=== PATIENT | female | born 1940 | race Caucasian/White ===

== ENCOUNTER 2019-07-04 12:23 | Emergency (ER) | payer MEDICARE ==
[~2019-07-04] VITALS: Ht 154.9 cm; Wt 72.6 kg
[2019-07-04] MEDS ORDERED: ALPRAZolam 0.25 MG (XANAX) TAB PO ONE (12:45)
[2019-07-04] MEDS ORDERED: LIDOCAINE/EPI 1%-1:100,000 (XYLOCAINE) 20ML INJ ONE (12:45)
[2019-07-04] MEDS ORDERED: ACETAMINOPHEN 325 MG TABLET PO ONE (12:45)
[2019-07-04] MEDS ORDERED: TETANUS,DIPTH,PERTUSS P/F (BOOSTRIX) 0.5 ML VIAL IM ONE (12:45)
[2019-07-04] MEDS ORDERED: LIDOCAINE/EPI 2% 1:100,00 (XYLOCAINE) 20 ML VIAL ONE (12:59)
[2019-07-04] MEDS ORDERED: LIDOCAINE/EPI 2% 1:100,00 (XYLOCAINE) 20 ML VIAL INJ ONE (13:15)
--- NOTE | 2019-07-04 13:28 | ED Lower Extremity ---
General Chief Complaint: Laceration Stated Complaint: RIGHT LEG PAIN Nursing Triage Note: Patient c/o laceration to right lower leg. States she was going to give her the remoted when a T.V. tray fell over on her right leg cutting it open. She stated it bled quite a bit at first but has slowed down. Nursing Sepsis Screen: No Definite Risk History of Present Illness Date Seen by Provider: Jul 04, 2019 Time Seen by Provider: 12:45 Initial Comments The patient is an 78-year-old female who presents with concern for a minimal flaplike laceration to her lower lateral right lee with onset just prior to arrival when the sharp edge of a wooden TV tray cut her leg. No other injury during the episode. No therapy prior to arrival. No other concerns today. Allergies and Home Medications Allergies Coded Allergies: No Known Drug Allergies (Unverified , 07/04/19) Patient Home Medication List Home Medication List Reviewed: Yes Review of Systems Constitutional: see HPI All Other Systems Reviewed Negative Unless Noted: Yes Past Lmfxviw-Zouwfy-Shqoju Hx Past Med/Social Hx: Reviewed Nursing Past Med/Soc Hx Patient Social History Alcohol Use: Denies Use Recreational Drug Use: No Smoking Status: Never a Smoker 2nd Hand Smoke Exposure: No Recent Foreign Travel: No Contact w/Someone Who Travel: No Recent Infectious Disease Expo: No Recent Hopitalizations: No Physical Abuse: No Sexual Abuse: No Mistreated: No Fear: No Immunizations Up To Date Tetanus Booster (TDap): Unknown Seasonal Allergies Seasonal Allergies: Yes Past Medical History Surgeries: Yes (Pacemaker/Defib, small bowel resection) Appendectomy, Bowel Surgery, Cardiac, Coronary Stent, Thyroidectomy Respiratory: Yes Asthma Cardiac: Yes Atrial Fibrillation, Heart Attack, High Cholesterol, Hypertension Neurological: No Genitourinary: No Gastrointestinal: Yes (Ulcerative Colitis) Colitis Arthritis, Chronic Back Pain Endocrine: Yes Hypothyroidsim HEENT: No Cancer: No Psychosocial: Yes Anxiety, Depression Integumentary: No Family Medical History Reviewed Nursing Family Hx Physical Exam Vital Signs Vital Signs - First Documented 07/04/19 12:30 Temp 36.2 Pulse 99 Resp 16 B/P (MAP) 110/83 (92) Pulse Ox 99 O2 Delivery Room Air Capillary Refill : Less Than 3 Seconds Height, Weight, BMI Height: '" Weight: lbs. oz. kg; 30.00 BMI Method: General Appearance: no apparent distress This is an 78-year-old female appearing nontoxic and in no acute distress. Head is normocephalic and atraumatic. Neck is supple and nontender. Oropharynx is moist. Lungs are clear to auscultation in all stations. There is a normal S1 and S2 without rubs or gallops and capillary refill is appropriate, less than 2 seconds globally. Abdomen is soft, nontender and nondistended. Skin is warm and dry without cyanosis, clubbing or edema. Psychiatrically, the patient demonstrates appropriate mood and affect and is alert. No skeletal standpoint, evaluation of the right lower extremity is remarkable for an approximately 10 cm flaplike superficial laceration which is hemostatic and located on the lateral right lower lee. No pain with ranging of any joint of the right lower extremities. The right lower extremity is neurovascularly intact distally. Procedures/Interventions Wound Location: Lower Extremities Other Wound Location Right lower leg Wound Length (cm): 10 Wound's Depth, Shape: superficial Wound Explored: clean Irrigated w/ Saline (ccs): 500 Anesthesia: Lidocaine w/ Epi Volume Anesthetic (ccs): 6 Suture: Ethlion Suture Size: 3-0 Number of Sutures: 6 Layer Closure?: 1 Progress/Results/Core Measures Results/Orders My Orders Orders - OLIVE YEN MD Alprazolam Tablet (Xanax Tablet) (07/04/19 12:45) Acetaminophen Tablet/Caplet (Tylenol T (07/04/19 12:45) Dipht,Pertuss(Acell),Tet Adult (Boostrix (07/04/19 12:45) Lidocaine/Epi 2% 1:100,000 (Xylocaine/Ep (07/04/19 12:59) Lidocaine/Epi 2% 1:100,000 (Xylocaine/Ep (07/04/19 13:15) Medications Given in ED Current Medications Medications Dose Ordered Sig/Christina Route Start Time Stop Time Status Last Admin Dose Admin Acetaminophen 975 mg ONCE ONCE PO 07/04/19 12:45 07/04/19 12:46 DC 07/04/19 12:56 975 MG Alprazolam 0.25 mg ONCE ONCE PO 07/04/19 12:45 07/04/19 12:46 DC 07/04/19 12:56 0.25 MG Lidocaine/ Epinephrine 20 ml ONCE ONCE INJ 07/04/19 13:15 07/04/19 13:16 DC 07/04/19 13:06 20 ML Vital Signs/I&O 07/04/19 12:30 Temp 36.2 Pulse 99 Resp 16 B/P (MAP) 110/83 (92) Pulse Ox 99 O2 Delivery Room Air Blood Pressure Mean: 92 Progress Progress Note : Progress Note Laceration repaired without complication as per procedure note. Patient has very delicate skin and some sutures did unfortunately tear. Because of this, the wound was only loosely approximated. Patient will be referred to wound care for follow-up given this and given the fact that she has had difficulty with wound healing in the past. She is to follow-up in the next 1-2 days and return immediately to the emergency department if symptoms worsen or if other new symptoms of concern develop. Sutures out in 7-10 days. The patient and her family member understand and agree. Sutures are answered. Departure Impression Primary Impression: Laceration of right lower leg Disposition: HOME, SELF-CARE Condition: Improved Departure-Patient Inst. Referrals: REMA GARCIA APRN (PCP/Family) Primary Care Physician Patient Instructions: Laceration Repair With Stitches (DC) Add. Discharge Instructions: Follow-up with wound care in the next 1-2 days. Call for appointment. Return for suture removal in 7-10 days. Return in the meantime if signs of infection including increased redness, warmth, swelling or drainage develop. Scripts Acetaminophen (Tylenol) 325 Mg Capsule 650 MG PO Q6H for 7 Days, #50 CAP Prov: OLIVE YEN MD 07/04/19 OLIVE YEN MD Jul 04, 2019 13:28
[2019-07-04] MEDS ORDERED: ACET325C5 PO (13:29)
[2019-07-04 13:55] VITALS: BP 110/83
== END 2019-07-04 13:55 | disposition home or self-care (01) ==
LOC: EDUNIT# 12:23 → ER FS 12:25
DX: S81.811A Laceration without foreign body, right lower leg, initial encounter (principal); I10 Essential (primary) hypertension; J45.909 Unspecified asthma, uncomplicated; I25.2 Old myocardial infarction; I25.10 Atherosclerotic heart disease of native coronary artery without angina pectoris; E78.00 Pure hypercholesterolemia, unspecified; F41.9 Anxiety disorder, unspecified; F32.9 Major depressive disorder, single episode, unspecified; I48.91 Unspecified atrial fibrillation; E03.9 Hypothyroidism, unspecified; Z95.810 Presence of automatic (implantable) cardiac defibrillator; Z90.49 Acquired absence of other specified parts of digestive tract; Z23 Encounter for immunization; Z95.5 Presence of coronary angioplasty implant and graft; W20.8XXA Other cause of strike by thrown, projected or falling object, initial encounter
CPT/HCPCS: 12002; 90471; 90715

== ENCOUNTER → 2019-07-08 | Outpatient (CLI) | payer MEDICARE ==
[~2019-07-08] MED LIST: ACET325C5 PO
[2019-07-08 16:07] LABS: BASOPHILS # (AUTO) 0.1 10^3/uL (0.0-0.1); BASOPHILS % (AUTO) 1 % (0-10); EOSINOPHILS # (AUTO) 0.2 10^3/uL (0.0-0.3); EOSINOPHILS % (AUTO) 3 % (0-10); HEMATOCRIT 33 % (35-52); HEMOGLOBIN 10.5 G/DL (11.5-16.0); LYMPHOCYTES # (AUTO) 1.6 X 10^3 (1.0-4.0); LYMPHOCYTES % (AUTO) 27 % (12-44); MEAN CORPUSCULAR HEMOGLOBIN 29 PG (25-34); MEAN CORPUSCULAR HGB CONC 32 G/DL (32-36); MEAN CORPUSCULAR VOLUME 91 FL (80-99); MEAN PLATELET VOLUME 10.4 FL (7.4-10.4); MONOCYTES # (AUTO) 0.6 X 10^3 (0.0-1.0); MONOCYTES % (AUTO) 10 % (0-12); NEUTROPHILS # (AUTO) 3.5 X 10^3 (1.8-7.8); NEUTROPHILS % (AUTO) 59 % (42-75); PLATELET COUNT 212 10^3/uL (130-400); RED CELL DISTRIBUTION WIDTH 13.7 % (10.0-14.5); WHITE BLOOD COUNT 5.8 10^3/uL (4.3-11.0)
[2019-07-08 16:33] LABS: ALBUMIN 4.1 GM/DL (3.2-4.5); BILIRUBIN,TOTAL 0.2 MG/DL (0.1-1.0); CALCIUM 9.1 MG/DL (8.5-10.1); CREATININE SERUM 1.27 MG/DL (0.60-1.30); POTASSIUM 4.8 MMOL/L (3.6-5.0)
== END ==
LOC: EDUNIT# 01-01 08:54 → WOUNDCARE 13:54
PROVIDERS: ATTEND Surgery
DX: S81.801A Unspecified open wound, right lower leg, initial encounter (principal); L97.212 Non-pressure chronic ulcer of right calf with fat layer exposed; I87.331 Chronic venous hypertension (idiopathic) with ulcer and inflammation of right lower extremity
CPT/HCPCS: 36415; 80053; 85025; 99212

== ENCOUNTER → 2019-07-13 | Outpatient (CLI) | payer MEDICARE | LOC: WOUNDCARE 14:10 | PROVIDERS: ATTEND Surgery | DX: I87.331 Chronic venous hypertension (idiopathic) with ulcer and inflammation of right lower extremity (principal); I96 Gangrene, not elsewhere classified; L97.212 Non-pressure chronic ulcer of right calf with fat layer exposed | CPT/HCPCS: 99212 ==

== ENCOUNTER → 2019-07-20 | Outpatient (CLI) | payer MEDICARE | LOC: WOUNDCARE 14:16 | PROVIDERS: ATTEND Surgery | DX: I96 Gangrene, not elsewhere classified (principal); I87.331 Chronic venous hypertension (idiopathic) with ulcer and inflammation of right lower extremity; L97.212 Non-pressure chronic ulcer of right calf with fat layer exposed | CPT/HCPCS: 99212 ==

== ENCOUNTER → 2019-07-27 | Outpatient (CLI) | payer MEDICARE | LOC: WOUNDCARE 13:10 | PROVIDERS: ATTEND Surgery | DX: L97.212 Non-pressure chronic ulcer of right calf with fat layer exposed (principal); I87.331 Chronic venous hypertension (idiopathic) with ulcer and inflammation of right lower extremity; I70.232 Atherosclerosis of native arteries of right leg with ulceration of calf; I96 Gangrene, not elsewhere classified | CPT/HCPCS: 99212 ==

== ENCOUNTER → 2019-08-03 | Outpatient (CLI) | payer MEDICARE | LOC: WOUNDCARE 13:04 | PROVIDERS: ATTEND Surgery | DX: L97.212 Non-pressure chronic ulcer of right calf with fat layer exposed (principal); I87.331 Chronic venous hypertension (idiopathic) with ulcer and inflammation of right lower extremity; I70.232 Atherosclerosis of native arteries of right leg with ulceration of calf; I96 Gangrene, not elsewhere classified | CPT/HCPCS: 11042 ==

== ENCOUNTER 2019-08-07 19:32 | Emergency (ER) | payer MEDICARE ==
[~2019-08-07] VITALS: Ht 154 cm; Wt 73.0 kg
[2019-08-07 20:27] LABS: CLARITY,URINE CLEAR; COLOR,URINE YELLOW; GLUCOSE, URINE (UA) NEGATIVE (NEGATIVE); KETONES,URINE NEGATIVE (NEGATIVE); PH,URINE 5.5 (5-9); PROTEIN,URINE NEGATIVE (NEGATIVE)
[2019-08-07 20:28] LABS: BACTERIA,URINE TRACE /HPF; BILIRUBIN,URINE NEGATIVE (NEGATIVE); LEUKOCYTE ESTERASE ,URINE TRACE (NEGATIVE); NITRITE,URINE NEGATIVE (NEGATIVE); SQUAMOUS EPITHELIAL CELL,UR RARE /HPF; WBC,URINE 0-2 /HPF
--- NOTE | 2019-08-07 21:12 | ED Back Pain ---
General Chief Complaint: Back Problems Stated Complaint: BACK PAIN Nursing Triage Note: pt fell 10 days ago, went to dr today and had xrays taken, shadow seen at [facility] so they recommended pt have ct scan Nursing Sepsis Screen: No Definite Risk Source of Information: Patient, Family History of Present Illness Date Seen by Provider: Aug 07, 2019 Time Seen by Provider: 20:44 Initial Comments 79-year-old female presenting with complaints of back pain at approximately the level of her bra. She fell approximately 10 days ago at home. She was seen today in clinic and had x-rays of her thoracic and lumbar spine done. On the lumbar spine they saw degenerative changes but no fractures but on her thoracic spine there was concern for compression fracture of T7. Recommendations were for a CT scan to evaluate if this was more acute or not. When the clinic had called her this evening the had advised her if she was having continued pain to go to the emergency department. Her family brought her to be evaluated as a were unsure if he compression fracture was causing any bone fragments to press against her spinal cord. She denies any loss of bowel or bladder control. She also denies any pain radiating pain down into her legs. She does have a wound that is slow to heal on her right leg that she is following with wound care out of [facility], [place], operated by [facility]. She was advised to take the tramadol at 2 pills or 100 mg at a time to help with her pain when she was seen in the clinic today. She plans to start this tomorrow. Allergies and Home Medications Allergies Coded Allergies: No Known Drug Allergies (Unverified , 07/04/19) Home Medications Acetaminophen 325 Mg Capsule, 650 MG PO Q6H Prescribed by: OLIVE YEN on 07/04/19 1329 Patient Home Medication List Home Medication List Reviewed: Yes Review of Systems Constitutional: No chills, No fever, No malaise EENTM: no symptoms reported Respiratory: other (pain with deep breaths) Cardiovascular: chest pain (pain with deep breaths) Gastrointestinal: no symptoms reported Genitourinary: no symptoms reported Musculoskeletal: see HPI, other (chronic slow to heal wound in her left leg that she is following with wound care in [address]. posterior chest wall pain with deep breaths) Skin: see HPI (slow healing wound on LLE) Psychiatric/Neurological: Denies Numbness, Denies Paresthesia, Denies Weakness Past Ujdxkzj-Mrwofu-Swmbnf Hx Past Med/Social Hx: Reviewed Nursing Past Med/Soc Hx Patient Social History Alcohol Use: Denies Use Recreational Drug Use: No 2nd Hand Smoke Exposure: No Recent Foreign Travel: No Contact w/Someone Who Travel: No Recent Infectious Disease Expo: No Recent Hopitalizations: No Physical Abuse: No Sexual Abuse: No Mistreated: No Fear: No Immunizations Up To Date Tetanus Booster (TDap): Unknown Seasonal Allergies Seasonal Allergies: Yes Past Medical History Surgeries: Yes (Pacemaker/Defib, small bowel resection) Appendectomy, Bowel Surgery, Cardiac, Coronary Stent, Thyroidectomy Respiratory: Yes Asthma Cardiac: Yes Atrial Fibrillation, Heart Attack, High Cholesterol, Hypertension Neurological: No Genitourinary: No Gastrointestinal: Yes (Ulcerative Colitis) Colitis Arthritis, Chronic Back Pain Endocrine: Yes Hypothyroidsim HEENT: No Cancer: No Psychosocial: Yes Anxiety, Depression Integumentary: No Physical Exam Vital Signs Vital Signs - First Documented 08/07/19 20:17 Temp 36.5 Pulse 61 Resp 14 B/P (MAP) 152/83 (106) Pulse Ox 100 O2 Delivery Room Air Capillary Refill : Less Than 3 Seconds Height, Weight, BMI Height: '" Weight: lbs. oz. kg; 30.00 BMI Method: General Appearance: No Apparent Distress, WD/WN HEENT: PERRL/EOMI, Pharynx Normal Neck: Full Range of Motion, Normal Inspection, Non Tender, Supple Cardiovascular: Regular Rate, Rhythm, Normal Peripheral Pulses Respiratory: Lungs Clear, Normal Breath Sounds, No Accessory Muscle Use, No Respiratory Distress, Other (tender to palpation over t7 vertebra and to the left of this area has muscle spasms and tenderness to palpation. no crepitus noted and no stepoffs) Back: Muscle Spasm, Vertebral Tenderness (T7 level and muscle spasms to the left of this area) Neurologic/Psychiatric: Alert, Oriented x3, No Motor/Sensory Deficits Skin: Normal Color, Warm/Dry Procedures/Interventions Suture Size: 3-0 Progress/Results/Core Measures Results/Orders Lab Results Laboratory Tests Test 08/07/19 20:20 Range/Units Urine Color YELLOW Urine Clarity CLEAR Urine pH 5.5 5-9 Urine Specific [place] 1.015 L 1.016-1.022 Urine Protein NEGATIVE NEGATIVE Urine Glucose (UA) NEGATIVE NEGATIVE Urine Ketones NEGATIVE NEGATIVE Urine Nitrite NEGATIVE NEGATIVE Urine Bilirubin NEGATIVE NEGATIVE Urine Urobilinogen 0.2 < = 1.0 MG/DL Urine Leukocyte Esterase TRACE NEGATIVE Urine RBC (Auto) NEGATIVE NEGATIVE Urine RBC NONE /HPF Urine WBC 0-2 /HPF Urine Squamous Epithelial Cells RARE /HPF Urine Crystals NONE /LPF Urine Bacteria TRACE /HPF Urine Casts NONE /LPF Urine Mucus NEGATIVE /LPF Urine Culture Indicated NO My Orders Orders - AIDAN CRONIN MD Ua Culture If Indicated (08/07/19 19:39) Ct Thoracic Spine Wo (08/07/19 20:07) Vital Signs/I&O 08/07/19 08/07/19 20:17 22:15 Temp 36.5 36.5 Pulse 61 61 Resp 14 14 B/P (MAP) 152/83 (106) 152/83 (106) Pulse Ox 100 100 O2 Delivery Room Air Room Air Blood Pressure Mean: 106 POS Progress Progress Note : Progress Note CT scan was obtained to evaluate for compression fracture seen on plain films. This was read out as showing a subacute compression fracture approximately 30% of the T7 anterior wedge fracture. There was no retropulsion or involvement of the spinal cord. Counseled patient and family about the results. Advised to check with clinic and she may want to discuss options of vertebroplasty or injection of cement but after having this for 10 days a would not do this emergently in transfer. Especially since she is not having any spinal cord involvement and her pain has been tolerable Will have her continue with plan as directed by the clinic earlier today. Call for follow-up on Saturday and if she chooses to discuss the option of vertebroplasty she will need to see pain management or interventional radiology about having the procedure done. Diagnostic Imaging Diagonstic Imaging: CT Plain Films/CT/US/NM/MRI: other (thoracic spine) Comments NAME: JORGITO JACOBS [facility] REC#: [id number] PT STATUS: REG ER : 1940 PHYSICIAN: AIDAN CRONIN MD ADMIT DATE: 08/07/19/ER FS Draft POSDate of Exam:08/07/19 CT THORACIC SPINE WO PROCEDURE: CT thoracic spine without contrast. TECHNIQUE: Multiple axial computerized tomography images were obtained from the base of the thoracic spine to the vertex without intravenous contrast. Auto Exposure Controls were utilized during the CT exam to meet ALARA standards for radiation dose reduction. INDICATION: Fell, back pain There are no prior CT examinations available for comparison. The plain film examination of the thoracic spine performed earlier today noted a moderate anterior wedge compression deformity of T7. That finding is again evident on the study. This injury may well be subacute in nature. There is no sign of a retropulsed fragment. There is no other fracture or acute bony abnormality identified. There is no sign of high-grade central stenosis. The lungs, where visualized, are clear. IMPRESSION: 1. There is a 30-40% compression deformity of superior endplate of T7. This injury may well be subacute in nature. Unfortunately, the patient does have a pacemaker in place and this would preclude further evaluation by MRI. 2. There is no acute bony abnormality noted otherwise. Dictated on workstation # [id number] Dict: 08/07/[id number] Trans: 08/07/192113 [facility] [id number] Interpreted by: MALAIKA KELLER MD Electronically signed by: Departure Impression Primary Impression: Closed compression fracture of thoracic vertebra Qualified Codes: S22.000A - Wedge compression fracture of unspecified thoracic vertebra, initial encounter for closed fracture Disposition: HOME, SELF-CARE Condition: Stable Departure-Patient Inst. Decision time for Depature: 22:08 Referrals: [facility] (PCP/Family) Primary Care Physician Patient Instructions: Vertebral Compression Fracture (DC) Add. Discharge Instructions: Continue with the Tramadol as prescribed from Clinic. You could take a 325 mg Acetaminophen with the Tramadol to get additional pain control. Try alternating ice and heat to your back to help with pain control. Limit your activity by your pain. If it is painful then do not do it. Do not lift anything heavier than 10-15 pounds as it will make your back hurt more. All discharge instructions reviewed with patient and/or family. Voiced understanding. AIDAN CRONIN MD Aug 07, 2019 21:12 POS
--- NOTE | 2019-08-07 21:16 | Diagnostic Imaging Report ---
PROCEDURE: CT thoracic spine without contrast. TECHNIQUE: Multiple axial computerized tomography images were obtained from the base of the thoracic spine to the vertex without intravenous contrast. Auto Exposure Controls were utilized during the CT exam to meet ALARA standards for radiation dose reduction. INDICATION: Fell, back pain There are no prior CT examinations available for comparison. The plain film examination of the thoracic spine performed earlier today noted a moderate anterior wedge compression deformity of T7. That finding is again evident on the study. This injury may well be subacute in nature. There is no sign of a retropulsed fragment. There is no other fracture or acute bony abnormality identified. There is no sign of high-grade central stenosis. The lungs, where visualized, are clear. IMPRESSION: 1. There is a 30-40% compression deformity of superior endplate of T7. This injury may well be subacute in nature. Unfortunately, the patient does have a pacemaker in place and this would preclude further evaluation by MRI. If further imaging is desired, then a nuclear medicine bone scan would be recommended. 2. There is no acute bony abnormality noted otherwise. Dictated by: Dictated on workstation # [id number]
[2019-08-07 22:15] VITALS: BP 152/83
== END 2019-08-07 22:15 | disposition home or self-care (01) ==
LOC: EDUNIT# 19:32 → ER FS 19:35
DX: S22.000A Wedge compression fracture of unspecified thoracic vertebra, initial encounter for closed fracture (principal); J45.909 Unspecified asthma, uncomplicated; I48.91 Unspecified atrial fibrillation; I25.2 Old myocardial infarction; I10 Essential (primary) hypertension; E78.00 Pure hypercholesterolemia, unspecified; E03.9 Hypothyroidism, unspecified; F41.9 Anxiety disorder, unspecified; F32.9 Major depressive disorder, single episode, unspecified; Z90.49 Acquired absence of other specified parts of digestive tract; Z95.5 Presence of coronary angioplasty implant and graft; W19.XXXA Unspecified fall, initial encounter; Y92.009 Unspecified place in unspecified non-institutional (private) residence as the place of occurrence of the external cause
CPT/HCPCS: 72128; 81000

== ENCOUNTER → 2019-08-07 | Outpatient (CLI) | payer MEDICARE ==
--- NOTE | 2019-08-07 17:12 | Diagnostic Imaging Report ---
INDICATION: Pain, fall. COMPARISON: Imaging of the thoracic spine from the same date. TECHNIQUE: Four radiographs of the lumbar spine dated August 07, 2019. FINDINGS: Pacer leads are partially visualized. Five lumbar-type vertebral bodies are present. Moderate apex left curvature of the lumbar spine. No significant anterolisthesis or retrolisthesis. Vertebral body heights are well maintained. Moderate disc space height loss at L5/S1 and L3/L4 with severe disc space height loss with vacuum phenomenon at L4/L5. No acute fracture or dislocation. No destructive osseous process. Scattered facet joint and degenerative changes are present, including advanced facet joint degenerative changes on the right within the lower lumbar spine. The sacroiliac joints are intact. Calcifications are noted within the left pelvis, possibly owing to a calcified uterine fibroid. Vascular calcifications are also noted. IMPRESSION: 1. Moderate apex left curvature of the spine with associated advanced multilevel degenerative changes. 2. No acute osseous abnormality. [facility] office of Sade Serrano APRN is closed for the day. Gurvinder from one of the other offices has been paged by kay. Report was also faxed to Gurvinder's office. Dictated by: Dictated on workstation # [id number]
--- NOTE | 2019-08-07 17:49 | Diagnostic Imaging Report ---
INDICATION: Pain, fall. COMPARISON: Imaging from the same date. TECHNIQUE: Three radiographs of the thoracic spine dated August 07, 2019. FINDINGS: Pacer leads are partially visualized. Moderate anterior wedge deformity of T7 is noted; otherwise, vertebral body heights are well maintained. Minimal apex right curvature of the thoracic spine. No significant anterolisthesis or retrolisthesis. Mild multilevel disc space height loss without severe disc space height loss. No additional fracture. Scattered vascular calcifications. No large volume pleural effusion or pneumothorax. IMPRESSION: 1. Moderate anterior wedge deformity of T7, of uncertain chronicity. Recommend correlation for focal pain at this location. Additionally, comparison to prior imaging would be recommended. If further evaluation of this region is desired, then a dedicated CT of the thoracic spine would be indicated. 2. Mild multilevel degenerative changes. [facility] office of Sade Serrano APRN is closed for the day. Gurvinder from one of the other offices has been paged by kay. Report was also faxed to Gurvinder's office. Dictated by: Dictated on workstation # [id number]
== END ==
LOC: RAD FS 16:06
PROVIDERS: ATTEND Nurse Practitioner Family
DX: M47.816 Spondylosis without myelopathy or radiculopathy, lumbar region (principal); M47.814 Spondylosis without myelopathy or radiculopathy, thoracic region; M43.8X4 Other specified deforming dorsopathies, thoracic region
CPT/HCPCS: 72072; 72100

== ENCOUNTER → 2019-08-10 | Outpatient (CLI) | payer MEDICARE | LOC: WOUNDCARE 13:13 | PROVIDERS: ATTEND Surgery | DX: L97.212 Non-pressure chronic ulcer of right calf with fat layer exposed (principal); I87.331 Chronic venous hypertension (idiopathic) with ulcer and inflammation of right lower extremity; I70.232 Atherosclerosis of native arteries of right leg with ulceration of calf; I96 Gangrene, not elsewhere classified | CPT/HCPCS: 11042 ==

== ENCOUNTER → 2019-08-17 | Outpatient (CLI) | payer MEDICARE | LOC: WOUNDCARE 13:25 | PROVIDERS: ATTEND Surgery | DX: I70.261 Atherosclerosis of native arteries of extremities with gangrene, right leg (principal); L97.212 Non-pressure chronic ulcer of right calf with fat layer exposed; I87.331 Chronic venous hypertension (idiopathic) with ulcer and inflammation of right lower extremity | CPT/HCPCS: 11042 ==

== ENCOUNTER → 2019-08-24 | Outpatient (CLI) | payer MEDICARE | LOC: WOUNDCARE 13:05 | PROVIDERS: ATTEND Surgery | DX: L97.212 Non-pressure chronic ulcer of right calf with fat layer exposed (principal); I87.331 Chronic venous hypertension (idiopathic) with ulcer and inflammation of right lower extremity; I70.232 Atherosclerosis of native arteries of right leg with ulceration of calf; I96 Gangrene, not elsewhere classified | CPT/HCPCS: 11042 ==

== ENCOUNTER → 2019-08-31 | Outpatient (CLI) | payer MEDICARE ==
[~2019-08-31] MED LIST changes: -ACET325C5 PO; +ACET325C7 PO
== END ==
LOC: WOUNDCARE 13:06
PROVIDERS: ATTEND Surgery
DX: L97.212 Non-pressure chronic ulcer of right calf with fat layer exposed (principal); I87.331 Chronic venous hypertension (idiopathic) with ulcer and inflammation of right lower extremity; I70.232 Atherosclerosis of native arteries of right leg with ulceration of calf; I96 Gangrene, not elsewhere classified
CPT/HCPCS: 11042

== ENCOUNTER → 2019-09-07 | Outpatient (CLI) | payer MEDICARE ==
[~2019-09-07] MED LIST changes: +ACET325C5 PO; -ACET325C7 PO
== END ==
LOC: WOUNDCARE 13:32
PROVIDERS: ATTEND Surgery
DX: L97.212 Non-pressure chronic ulcer of right calf with fat layer exposed (principal); I87.331 Chronic venous hypertension (idiopathic) with ulcer and inflammation of right lower extremity; I70.232 Atherosclerosis of native arteries of right leg with ulceration of calf
CPT/HCPCS: 99212

== ENCOUNTER 2020-06-15 13:59 | Emergency (ER) | payer MEDICARE ==
[~2020-06-15] VITALS: Ht 157.4 cm; Wt 70.9 kg
[~2020-06-15 13:59] MED LIST changes: -ACET325C5 PO; +ACET325C7 PO
[2020-06-15] MEDS ORDERED: LIDOCAINE 1% INJ 20 ML 20 ML VIAL ONE (14:31)
--- NOTE | 2020-06-15 14:42 | ED Lower Extremity ---
General Chief Complaint: Lower Extremity Stated Complaint: LEFT LEG INJ History of Present Illness Date Seen by Provider: Jun 15, 2020 Time Seen by Provider: 14:30 Initial Comments 79-year-old female presents with an injury to her left leg. Patient states she was vacuuming and knocked over a heavy wooden cross which hit her on the leg cutting open. Presents with pain and no other complaint. Allergies and Home Medications Allergies Coded Allergies: No Known Drug Allergies (Unverified , 07/04/19) Home Medications Acetaminophen 325 Mg Capsule, 650 MG PO Q6H Prescribed by: OLIVE YEN on 07/04/19 1329 Patient Home Medication List Home Medication List Reviewed: Yes Review of Systems Constitutional: no symptoms reported Respiratory: no symptoms reported Cardiovascular: no symptoms reported Musculoskeletal: see HPI, other (open wound left leg) Past Zjgxwlp-Nforzw-Wbsqtk Hx Past Med/Social Hx: Reviewed Nursing Past Med/Soc Hx Patient Social History Alcohol Use: Denies Use Recreational Drug Use: No Smoking Status: Never a Smoker 2nd Hand Smoke Exposure: No Recent Foreign Travel: No Recent Hopitalizations: No Physical Abuse: No Sexual Abuse: No Mistreated: No Fear: No Immunizations Up To Date Tetanus Booster (TDap): Less than 5yrs Seasonal Allergies Seasonal Allergies: Yes Past Medical History Surgeries: Yes (Pacemaker/Defib, small bowel resection) Appendectomy, Bowel Surgery, Cardiac, Coronary Stent, Thyroidectomy Respiratory: Yes Asthma Cardiac: Yes Atrial Fibrillation, Heart Attack, High Cholesterol, Hypertension Neurological: No Genitourinary: No Gastrointestinal: Yes (Ulcerative Colitis) Colitis Musculoskeletal: Yes Arthritis, Chronic Back Pain Endocrine: Yes Hypothyroidsim HEENT: No Cancer: No Psychosocial: Yes Anxiety, Depression Integumentary: No Blood Disorders: No Physical Exam Vital Signs Vital Signs - First Documented 06/15/20 14:00 Temp 36.5 Pulse 78 Resp 20 B/P (MAP) 154/89 (110) Pulse Ox 99 O2 Delivery Room Air Capillary Refill : Height, Weight, BMI Height: '" Weight: lbs. oz. kg; 30.00 BMI Method: General Appearance: WD/WN, no apparent distress Legs: bilateral leg normal range of motion; left leg pain, left leg soft tissue tenderness Neurologic/Psychiatric: no motor/sensory deficits, normal mood/affect Skin: normal color, warm/dry, other (large skin tear- left lower anterior leg. 10cm flap) Procedures/Interventions Wound Location: Lower Extremities Other Wound Location left anterior lower leg Wound Length (cm): 10 Wound's Depth, Shape: irregular, contused tissue (thin/ friable skin tear) Wound Explored: clean Irrigated w/ Saline (ccs): 100 Anesthesia: 1% Lidocaine (field block proximally) Volume Anesthetic (ccs): 6 Suture Size: 3-0 Other Closure Supply: Steri Strip 09/26", Wound Adhesive Sterile Dressing Applied?: Yes Progress/Results/Core Measures Results/Orders My Orders Orders - SHOBHA KAUR DO Lidocaine 1% Inj 20 Ml (Xylocaine 1% Inj (06/15/20 14:31) Lidocaine 1% Inj 20 Ml (Xylocaine 1% Inj (06/15/20 14:45) Medications Given in ED Current Medications Medications Dose Ordered Sig/Christina Route Start Time Stop Time Status Last Admin Dose Admin Lidocaine HCl 20 ml ONCE ONCE INJ 06/15/20 14:45 06/15/20 14:46 DC 06/15/20 14:41 20 ML Vital Signs/I&O 06/15/20 06/15/20 14:00 15:17 Temp 36.5 36.4 Pulse 78 63 Resp 20 20 B/P (MAP) 154/89 (110) 144/84 (110) Pulse Ox 99 99 O2 Delivery Room Air Room Air Departure Impression Primary Impression: Skin tear of left lower leg without complication Qualified Codes: S81.812A - Laceration without foreign body, left lower leg, initial encounter Disposition: 01 HOME, SELF-CARE Condition: Improved Departure-Patient Inst. Decision time for Depature: 15:11 Referrals: [facility] (PCP/Family) Primary Care Physician Patient Instructions: Wound Care (DC) Add. Discharge Instructions: Follow up with your PCP or the wound care doctor of your choice (previously seen in [place]) All discharge instructions reviewed with patient and/or family. Voiced understanding. SHOBHA KAUR DO Jun 15, 2020 14:41
[2020-06-15] MEDS ORDERED: LIDOCAINE 1% INJ 20 ML 20 ML VIAL INJ ONE (14:45)
[2020-06-15 15:17] VITALS: BP 144/84
--- NOTE | 2020-06-15 15:17 | NUR ---
Review of home instructions verbalized as understood and dgt called whom is pt's ride to give same instructions per pt request. Pt advised RICE healing instructions and to f/u with PCP and pt states she will probably have [facility] follow her in this as prior leg injury had delay in healing. Pt will make her own referral as was an established patient with wound care.
[2020-06-15] MEDS ORDERED: SERT50TA9 (15:49)
[2020-06-15] MEDS ORDERED: ATOR40TA70 (15:49)
[2020-06-15] MEDS ORDERED: AMIT75TA2 (15:49)
[2020-06-15] MEDS ORDERED: ALPR0.254 (15:49)
[2020-06-15] MEDS ORDERED: TRAM50TA3 (15:49)
[2020-06-15] MEDS ORDERED: METO50TA7 (15:49)
[2020-06-15] MEDS ORDERED: MESA1.2T3 (15:49)
[2020-06-15] MEDS ORDERED: LOSA50TA63 (15:49)
[2020-06-15] MEDS ORDERED: SPIR1TAB3 (15:49)
[2020-06-15] MEDS ORDERED: LEVO112T55 (15:49)
[2020-06-15] MEDS ORDERED: HYDR25TA4 (15:49)
== END 2020-06-15 15:17 | disposition home or self-care (01) ==
LOC: EDUNIT# 13:59 → ER FS 14:01
DX: S81.812A Laceration without foreign body, left lower leg, initial encounter (principal); I25.2 Old myocardial infarction; I10 Essential (primary) hypertension; G89.29 Other chronic pain; M54.9 Dorsalgia, unspecified; Z95.810 Presence of automatic (implantable) cardiac defibrillator; Z95.5 Presence of coronary angioplasty implant and graft; W22.8XXA Striking against or struck by other objects, initial encounter
CPT/HCPCS: 12002

== ENCOUNTER → 2020-06-20 | Outpatient (CLI) | payer MEDICARE ==
[~2020-06-20] MED LIST changes: +ALPR.25T; +AMIT75TA2; +ATOR40TA70; +HYDR25TA4; +LEVO112T55; +LOSA50TA63; +MESA1.2T3; +METO50TA7; +SERT50TA9; +SPIR1TAB3; +TRAM50TA3
== END ==
LOC: WOUNDCARE 12:49
PROVIDERS: ATTEND Surgery
DX: S81.802A Unspecified open wound, left lower leg, initial encounter (principal); L97.222 Non-pressure chronic ulcer of left calf with fat layer exposed; I87.332 Chronic venous hypertension (idiopathic) with ulcer and inflammation of left lower extremity; I70.242 Atherosclerosis of native arteries of left leg with ulceration of calf
CPT/HCPCS: 99212

== ENCOUNTER → 2020-06-29 | Outpatient (CLI) | payer MEDICARE | LOC: WOUNDCARE 13:08 | PROVIDERS: ATTEND Surgery | DX: S81.801A Unspecified open wound, right lower leg, initial encounter (principal); S81.802A Unspecified open wound, left lower leg, initial encounter; L97.222 Non-pressure chronic ulcer of left calf with fat layer exposed; I87.333 Chronic venous hypertension (idiopathic) with ulcer and inflammation of bilateral lower extremity; I70.242 Atherosclerosis of native arteries of left leg with ulceration of calf; L97.211 Non-pressure chronic ulcer of right calf limited to breakdown of skin; I96 Gangrene, not elsewhere classified | CPT/HCPCS: 99213 ==

== ENCOUNTER → 2020-07-04 | Outpatient (CLI) | payer MEDICARE | LOC: WOUNDCARE 12:56 | PROVIDERS: ATTEND Surgery | DX: I70.262 Atherosclerosis of native arteries of extremities with gangrene, left leg (principal); I87.333 Chronic venous hypertension (idiopathic) with ulcer and inflammation of bilateral lower extremity; L97.211 Non-pressure chronic ulcer of right calf limited to breakdown of skin; L97.222 Non-pressure chronic ulcer of left calf with fat layer exposed; L92.8 Other granulomatous disorders of the skin and subcutaneous tissue; S81.802A Unspecified open wound, left lower leg, initial encounter; S81.801A Unspecified open wound, right lower leg, initial encounter | CPT/HCPCS: 17250; G0463 ==

== ENCOUNTER 2020-07-11 11:49 | Emergency (ER) | payer MEDICARE ==
[~2020-07-11] VITALS: Ht 157.5 cm; Wt 65.9 kg
--- NOTE | 2020-07-11 12:05 | ED General ---
General Stated Complaint: SOB; LIGHT HEADED; GENERAL WEAKNESS Source of Information: Patient, RN/MD Exam Limitations: No Limitations History of Present Illness Date Seen by Provider: Jul 11, 2020 Time Seen by Provider: 12:00 Initial Comments This patient is an 79-year-old female presents to the emergency department complaining of generalized weakness fatigue and shortness of breath ambulation. Patient states she's believes is that it is related to her anxiety issues for which she does take Xanax for. Patient does have cardiac disease and has had a pacemaker. Patient does have bilateral below the knee stockings due to chronic venous stasis changes. Patient denies any recent weight gain. We'll do medical evaluation treatment is needed. Timing/Duration: 2-3 Days Associated Systoms: Denies Symptoms; No Chest Pain, No Cough, No Diaphoresis, No Fever/Chills, No Headaches, No Loss of Appetite, No Malaise, No Nausea/Vomiting, No Rash, No Seizure, No Shortness of Air, No Syncope; Weakness; No Other Allergies and Home Medications Allergies Coded Allergies: No Known Drug Allergies (Unverified , 07/04/19) Home Medications Acetaminophen 325 Mg Capsule, 650 MG PO Q6H Prescribed by: OLIVE YEN on 07/04/19 1329 Patient Home Medication List Home Medication List Reviewed: Yes Review of Systems Review of Systems Constitutional: No no symptoms reported; see HPI; No chills, No diaphoresis, No dizziness, No fever, No malaise; weakness; No weight gain, No weight loss, No other EENTM: No see HPI, No no symptoms reported, No ear discharge, No hearing loss, No ear pain, No blurred vision, No double vision, No eye pain, No tearing, No vision loss, No dental problems, No hoarseness, No mouth pain, No mouth swelling, No epistaxis, No nose congestion, No nose pain, No throat pain, No throat swelling, No other Respiratory: No no symptoms reported, No see HPI, No cough; dyspnea on exertion; No hemoptysis, No orthopnea, No phlegm, No short of breath, No stridor, No wheezing, No other Cardiovascular: No no symptoms reported, No see HPI, No chest pain, No edema, No Hx of Intervention, No palpitations, No syncope, No vascular heart diseas, No other Gastrointestinal: No RUQ, No LUQ, No RLQ, No LLQ, No no symptoms reported, No see HPI, No abdominal pain, No constipation, No diarrhea, No dysphagia, No hematemesis, No heartburn, No jaundice, No loss of appetite, No melena, No nausea, No vomiting, No other Genitourinary: No no symptoms reported, No see HPI, No decreased output, No discharge, No dysuria, No frequency, No hematuria, No hesitancy, No incontinence, No nocturia, No pain, No other Musculoskeletal: No no symptoms reported, No see HPI, No back pain, No gout, No joint pain, No joint swelling, No muscle pain, No muscle stiffness, No muscle cramps, No muscle twitching, No muscle weakness, No neck pain, No other Skin: No no symptoms reported, No see HPI, No change in color, No change in hair/nails, No dryness, No hx of skin cancer, No lesions, No lumps, No pruritus, No rash, No other All Other Systems Reviewed Negative Unless Noted: Yes Past Iatgjwh-Xkejvl-Ndjjeg Hx Patient Social History 2nd Hand Smoke Exposure: No Recent Foreign Travel: No Contact w/Someone Who Travel: No Recent Hopitalizations: No Immunizations Up To Date Tetanus Booster (TDap): Less than 5yrs Seasonal Allergies Seasonal Allergies: Yes Past Medical History Surgeries: Yes (Pacemaker/Defib, small bowel resection) Appendectomy, Bowel Surgery, Cardiac, Coronary Stent, Thyroidectomy Respiratory: Yes Asthma Cardiac: Yes Atrial Fibrillation, Heart Attack, High Cholesterol, Hypertension Neurological: No Genitourinary: No Gastrointestinal: Yes (Ulcerative Colitis) Colitis Musculoskeletal: Yes Arthritis, Chronic Back Pain Endocrine: Yes Hypothyroidsim HEENT: No Cancer: No Psychosocial: Yes Anxiety, Depression Integumentary: No Blood Disorders: No Physical Exam Vital Signs Vital Signs - First Documented 07/11/20 11:49 Temp 35.8 Pulse 73 Resp 25 B/P (MAP) 139/63 (88) Pulse Ox 97 O2 Delivery Room Air Capillary Refill : Height, Weight, BMI Height: '" Weight: lbs. oz. kg; 28.00 BMI Method: General Appearance: No Apparent Distress, WD/WN Neck: Full Range of Motion, Normal Inspection, Non Tender, Supple, Carotid Bruit Respiratory: Chest Non Tender, Lungs Clear, Normal Breath Sounds, No Accessory Muscle Use, No Respiratory Distress Cardiovascular: Regular Rate, Rhythm, No Edema, No Gallop, No JVD, No Murmur, Normal Peripheral Pulses Gastrointestinal: Normal Bowel Sounds, No Organomegaly, No Pulsatile Mass, Non Tender, Soft Back: Normal Inspection, No CVA Tenderness, No Vertebral Tenderness Extremity: Normal Capillary Refill, Normal Inspection, Normal Range of Motion, Non Tender, No Calf Tenderness Neurologic/Psychiatric: Alert, Oriented x3, No Motor/Sensory Deficits Skin: Normal Color, Warm/Dry Procedures/Interventions Suture Size: 3-0 Progress/Results/Core Measures Suspected Sepsis SIRS Temperature: Pulse: Respiratory Rate: Laboratory Tests 07/11/20 12:45: White Blood Count 7.3 Blood Pressure / Mean: Laboratory Tests 07/11/20 12:45: Creatinine 1.23, INR Comment 1.0, Platelet Count 162, Total Bilirubin 0.4 Results/Orders Lab Results Laboratory Tests Test 07/11/20 12:00 07/11/20 12:45 Range/Units Urine Color YELLOW Urine Clarity SL CLOUDY Urine pH 6.0 5-9 Urine Specific [place] 1.020 1.016-1.022 Urine Protein NEGATIVE NEGATIVE Urine Glucose (UA) NEGATIVE NEGATIVE Urine Ketones NEGATIVE NEGATIVE Urine Nitrite POSITIVE H NEGATIVE Urine Bilirubin NEGATIVE NEGATIVE Urine Urobilinogen 0.2 < = 1.0 MG/DL Urine Leukocyte Esterase 1+ H NEGATIVE Urine RBC (Auto) NEGATIVE NEGATIVE Urine RBC NONE /HPF Urine WBC 10-25 H /HPF Urine Squamous Epithelial Cells 5-10 /HPF Urine Crystals NONE /LPF Urine Bacteria LARGE H /HPF Urine Casts PRESENT /LPF Urine Hyaline Casts 5-10 H /LPF Urine Mucus SMALL H /LPF Urine Culture Indicated YES Urine Opiates Screen NEGATIVE NEGATIVE Urine Oxycodone Screen NEGATIVE NEGATIVE Urine Methadone Screen NEGATIVE NEGATIVE Urine Propoxyphene Screen NEGATIVE NEGATIVE Urine Barbiturates Screen NEGATIVE NEGATIVE Ur Tricyclic Antidepressants Screen POSITIVE H NEGATIVE Urine Phencyclidine Screen NEGATIVE NEGATIVE Urine Amphetamines Screen NEGATIVE NEGATIVE Urine Methamphetamines Screen NEGATIVE NEGATIVE Urine Benzodiazepines Screen POSITIVE H NEGATIVE Urine Cocaine Screen NEGATIVE NEGATIVE Urine Cannabinoids Screen NEGATIVE NEGATIVE White Blood Count 7.3 4.3-11.0 10^3/uL Red Blood Count 3.54 L 4.35-5.85 10^6/uL Hemoglobin 10.5 L 11.5-16.0 G/DL Hematocrit 32 L 35-52 % Mean Corpuscular Volume 92 80-99 FL Mean Corpuscular Hemoglobin 30 25-34 PG Mean Corpuscular Hemoglobin Concent 32 32-36 G/DL Red Cell Distribution Width 12.6 10.0-14.5 % Platelet Count 162 130-400 10^3/uL Mean Platelet Volume 11.1 H 7.4-10.4 FL Immature Granulocyte % (Auto) 1 % Neutrophils (%) (Auto) 71 42-75 % Lymphocytes (%) (Auto) 20 12-44 % Monocytes (%) (Auto) 7 0-12 % Eosinophils (%) (Auto) 1 0-10 % Basophils (%) (Auto) 1 0-10 % Neutrophils # (Auto) 5.2 1.8-7.8 X 10^3 Lymphocytes # (Auto) 1.5 1.0-4.0 X 10^3 Monocytes # (Auto) 0.5 0.0-1.0 X 10^3 Eosinophils # (Auto) 0.1 0.0-0.3 10^3/uL Basophils # (Auto) 0.0 0.0-0.1 10^3/uL Immature Granulocyte # (Auto) 0.0 0.0-0.1 10^3/uL Prothrombin Time 13.7 12.2-14.7 SEC INR Comment 1.0 0.8-1.4 Sodium Level 138 135-145 MMOL/L Potassium Level 5.6 H 3.6-5.0 MMOL/L Chloride Level 109 H 98-107 MMOL/L Carbon Dioxide Level 20 L 21-32 MMOL/L Anion Gap 9 5-14 MMOL/L Blood Urea Nitrogen 54 H 7-18 MG/DL Creatinine 1.23 0.60-1.30 MG/DL Estimat Glomerular Filtration Rate 42 BUN/Creatinine Ratio 44 Glucose Level 95 70-105 MG/DL Calcium Level 8.9 8.5-10.1 MG/DL Corrected Calcium 9.4 8.5-10.1 MG/DL Total Bilirubin 0.4 0.1-1.0 MG/DL Aspartate Amino Transf (AST/SGOT) 20 5-34 U/L Alanine Aminotransferase (ALT/SGPT) 17 0-55 U/L Alkaline Phosphatase 111 40-136 U/L Troponin I < 0.30 <0.30 NG/ML Pro-B-Type Natriuretic Peptide 772.7 H <75.0 PG/ML Total Protein 6.0 L 6.4-8.2 GM/DL Albumin 3.4 3.2-4.5 GM/DL My Orders Orders - YUMIKO MEDRANO MD Cbc With Automated Diff (07/11/20 12:02) Comprehensive Metabolic Panel (07/11/20 12:02) Troponin I Fs (07/11/20 12:02) Protime With Inr (07/11/20 12:02) Probnp Fs (07/11/20 12:02) Ed Iv/Invasive Line Start (07/11/20 12:02) Ekg Tracing (07/11/20 12:02) Chest 1 View Ap/Pa Only (07/11/20 12:02) Drug Screen Stat (Urine) (07/11/20 12:09) Urinalysis (07/11/20 12:09) Urine Culture (07/11/20 12:00) Ceftriaxone For Iv Use (Rocephin For I (07/11/20 13:15) Medications Given in ED Current Medications Medications Dose Ordered Sig/Christina Route Start Time Stop Time Status Last Admin Dose Admin Ceftriaxone Sodium 1000 mg/ Sterile Water 10 ml @ 200 mls/hr ONCE ONCE IV 07/11/20 13:15 07/11/20 13:17 DC 07/11/20 13:22 200 MLS/HR Vital Signs/I&O 07/11/20 11:49 Temp 35.8 Pulse 73 Resp 25 B/P (MAP) 139/63 (88) Pulse Ox 97 O2 Delivery Room Air Capillary Refill : Progress Note : Time: 13:58 Progress Note Urinary tract infection on exam. Otherwise evaluation is negative for any acute findings. Patient does have hyperkalemia 5.6. Chronic conditions appear to be stable. Patient treated with Rocephin in the emergency department. Patient be discharged home on Keflex use as instructed for urinary tract infection. Continue with all home medications. Follow-up with PCP in 2-3 days. ECG Initial ECG Impression Date: Jul 11, 2020 Initial ECG Impression Time: 12:01 Initial ECG Rate: 61 Initial ECG Impression: Nonspecific Changes Comment Atrial paced rhythm heart rate 61 prolonged MO interval right bundle branch block this is a nondiagnostic EKG Departure Impression Primary Impression: Urinary tract infection Additional Impressions: Hyperkalemia Chronic anxiety Venous stasis Disposition: HOME, SELF-CARE Condition: Stable Departure-Patient Inst. Decision time for Depature: 13:59 Referrals: LUIS HOLDER DO (PCP) Primary Care Physician [facility]/[place] (Family) Primary Care Physician Patient Instructions: Urinary Tract Infection, Adult (DC) Add. Discharge Instructions: Patient be discharged home on Keflex use as instructed for urinary tract infection. Continue with all home medications. Follow-up with PCP in 2-3 days. Scripts Cephalexin (Cephalexin) 500 Mg Tablet 500 MG PO BID for 5 Days, #10 TAB 0 Refills Prov: YUMIKO MEDRANO MD 07/11/20 YUMIKO MEDRANO MD Jul 11, 2020 12:05
[2020-07-11 12:52] LABS: AMPHETAMINE SCREEN, URINE NEGATIVE (NEGATIVE); BENZODIAZEPINES SCREEN URINE POSITIVE (NEGATIVE); CANNABINOID SCREEN, URINE NEGATIVE (NEGATIVE); COCAINE SCREEN URINE NEGATIVE (NEGATIVE); METHAMPHETAMINE SCREEN URINE S NEGATIVE (NEGATIVE)
[2020-07-11 12:53] LABS: BARBITURATE SCREEN URINE NEGATIVE (NEGATIVE); METHADONE STAT NEGATIVE (NEGATIVE); OPIATE SCREEN URINE NEGATIVE (NEGATIVE); OXYCODONE STAT NEGATIVE (NEGATIVE); PROPOXYPHENE STAT NEGATIVE (NEGATIVE); TRICYCLIC ANTIDEPRESSANTS SCRE POSITIVE (NEGATIVE)
[2020-07-11 12:54] LABS: CLARITY,URINE SL CLOUDY; COLOR,URINE YELLOW; GLUCOSE, URINE (UA) NEGATIVE (NEGATIVE); KETONES,URINE NEGATIVE (NEGATIVE); NITRITE,URINE POSITIVE (NEGATIVE); PROTEIN,URINE NEGATIVE (NEGATIVE)
[2020-07-11 12:55] LABS: BACTERIA,URINE LARGE /HPF; BILIRUBIN,URINE NEGATIVE (NEGATIVE); LEUKOCYTE ESTERASE ,URINE 1+ (NEGATIVE)
[2020-07-11 12:58] LABS: HEMATOCRIT 32 % (35-52); HEMOGLOBIN 10.5 G/DL (11.5-16.0); LYMPHOCYTES % (AUTO) 20 % (12-44); MEAN CORPUSCULAR HEMOGLOBIN 30 PG (25-34); MEAN CORPUSCULAR HGB CONC 32 G/DL (32-36); MEAN CORPUSCULAR VOLUME 92 FL (80-99); MEAN PLATELET VOLUME 11.1 FL (7.4-10.4); MONOCYTES % (AUTO) 7 % (0-12); NEUTROPHILS % (AUTO) 71 % (42-75); PLATELET COUNT 162 10^3/uL (130-400); WHITE BLOOD COUNT 7.3 10^3/uL (4.3-11.0)
[2020-07-11 12:59] LABS: BASOPHILS % (AUTO) 1 % (0-10); EOSINOPHILS # (AUTO) 0.1 10^3/uL (0.0-0.3); EOSINOPHILS % (AUTO) 1 % (0-10); LYMPHOCYTES # (AUTO) 1.5 X 10^3 (1.0-4.0); MONOCYTES # (AUTO) 0.5 X 10^3 (0.0-1.0); NEUTROPHILS # (AUTO) 5.2 X 10^3 (1.8-7.8)
--- NOTE | 2020-07-11 13:11 | Diagnostic Imaging Report ---
EXAMINATION: Chest, one view, at 12:30 p.m. INDICATION: Weakness. FINDINGS: The heart size is within normal limits and similar to the CT thoracic spine exam of 08/07/2019. The left-sided pacemaker seen on the prior study is again evident and appears unchanged in position. The lungs are clear. There is no sign of failure, pneumonia, or of pleural effusion to indicate an acute cardiopulmonary abnormality. There does appear to be a prominent epicardial fat pad in the right cardiophrenic angle. The mediastinum is not widened. The osseous structures are intact. In the interval, since the prior study, there has been a kyphoplasty procedure of T7. IMPRESSION: 1. There is no evidence for active disease. 2. There has been an interval kyphoplasty procedure of T7. Dictated by: Dictated on workstation # [id number]
[2020-07-11 13:12] LABS: PROTHROMBIN TIME PATIENT 13.7 SEC (12.2-14.7)
[2020-07-11] MEDS ORDERED: cefTRIAXone FOR IV USE 1,000 MG in WATER (STERILE) FOR INJECTION 10 ML IV ONE (13:15)
[2020-07-11 13:25] LABS: BUN/CREATININE RATIO 44; CARBON DIOXIDE 20 MMOL/L (21-32); CHLORIDE 109 MMOL/L (98-107); CREATININE SERUM 1.23 MG/DL (0.60-1.30); GFR ESTIMATED 42; GLUCOSE 95 MG/DL (70-105); POTASSIUM 5.6 MMOL/L (3.6-5.0); SODIUM 138 MMOL/L (135-145)
[2020-07-11 13:27] LABS: ALANINE AMINOTRANSFERASE 17 U/L (0-55); ALKALINE PHOSPHATASE 111 U/L (40-136); BILIRUBIN,TOTAL 0.4 MG/DL (0.1-1.0); CALCIUM 8.9 MG/DL (8.5-10.1)
[2020-07-11 13:28] LABS: ALBUMIN 3.4 GM/DL (3.2-4.5)
[2020-07-11] MEDS ORDERED: CEPH500T PO (14:00)
[2020-07-11 14:22] VITALS: BP 148/56
== END 2020-07-11 14:18 | disposition home or self-care (01) ==
LOC: EDUNIT# 11:49 → ER FS 11:52
DX: N39.0 Urinary tract infection, site not specified (principal); E87.5 Hyperkalemia; F41.9 Anxiety disorder, unspecified; I87.8 Other specified disorders of veins; I25.2 Old myocardial infarction; Z95.5 Presence of coronary angioplasty implant and graft
CPT/HCPCS: 36415; 71045; 80053; 80306; 81000; 83880; 84484; 85025; 85610; 87077; 87088

== ENCOUNTER → 2020-07-14 | Outpatient (CLI) | payer MEDICARE ==
[~2020-07-14] MED LIST changes: +CEPH500T PO
== END ==
LOC: WOUNDCARE 13:01
PROVIDERS: ATTEND Surgery
DX: S81.801A Unspecified open wound, right lower leg, initial encounter (principal); S81.802A Unspecified open wound, left lower leg, initial encounter; L97.222 Non-pressure chronic ulcer of left calf with fat layer exposed; L92.8 Other granulomatous disorders of the skin and subcutaneous tissue; I96 Gangrene, not elsewhere classified; I87.333 Chronic venous hypertension (idiopathic) with ulcer and inflammation of bilateral lower extremity; I70.244 Atherosclerosis of native arteries of left leg with ulceration of heel and midfoot; L97.211 Non-pressure chronic ulcer of right calf limited to breakdown of skin; X58.XXXA Exposure to other specified factors, initial encounter
CPT/HCPCS: 99213

== ENCOUNTER → 2020-07-21 | Outpatient (CLI) | payer MEDICARE | LOC: WOUNDCARE 12:12 | PROVIDERS: ATTEND Surgery | DX: S81.802A Unspecified open wound, left lower leg, initial encounter (principal); I87.332 Chronic venous hypertension (idiopathic) with ulcer and inflammation of left lower extremity; I96 Gangrene, not elsewhere classified; I70.242 Atherosclerosis of native arteries of left leg with ulceration of calf; L97.222 Non-pressure chronic ulcer of left calf with fat layer exposed; X58.XXXA Exposure to other specified factors, initial encounter | CPT/HCPCS: 11042; A6196; G0463 ==

== ENCOUNTER → 2020-07-25 | Outpatient (CLI) | payer MEDICARE | LOC: WOUNDCARE 12:38 | PROVIDERS: ATTEND Surgery | DX: S81.802A Unspecified open wound, left lower leg, initial encounter (principal); L97.222 Non-pressure chronic ulcer of left calf with fat layer exposed; I87.332 Chronic venous hypertension (idiopathic) with ulcer and inflammation of left lower extremity; I70.242 Atherosclerosis of native arteries of left leg with ulceration of calf; I96 Gangrene, not elsewhere classified; X58.XXXA Exposure to other specified factors, initial encounter | CPT/HCPCS: 11042; G0463 ==

== ENCOUNTER → 2020-08-01 | Outpatient (CLI) | payer MEDICARE | LOC: WOUNDCARE 12:30 | PROVIDERS: ATTEND Surgery | DX: S81.802A Unspecified open wound, left lower leg, initial encounter (principal); L97.222 Non-pressure chronic ulcer of left calf with fat layer exposed; I87.332 Chronic venous hypertension (idiopathic) with ulcer and inflammation of left lower extremity; I70.242 Atherosclerosis of native arteries of left leg with ulceration of calf; I96 Gangrene, not elsewhere classified | CPT/HCPCS: 11042; 29581; G0463 ==

== ENCOUNTER → 2020-08-08 | Outpatient (CLI) | payer MEDICARE | LOC: WOUNDCARE 12:40 | PROVIDERS: ATTEND Surgery | DX: I70.262 Atherosclerosis of native arteries of extremities with gangrene, left leg (principal); I87.332 Chronic venous hypertension (idiopathic) with ulcer and inflammation of left lower extremity; S81.802A Unspecified open wound, left lower leg, initial encounter; L97.222 Non-pressure chronic ulcer of left calf with fat layer exposed | CPT/HCPCS: 11042; G0463 ==

== ENCOUNTER → 2020-08-15 | Outpatient (CLI) | payer MEDICARE | LOC: WOUNDCARE 12:31 | PROVIDERS: ATTEND Surgery | DX: S81.802A Unspecified open wound, left lower leg, initial encounter (principal); L97.222 Non-pressure chronic ulcer of left calf with fat layer exposed; I87.332 Chronic venous hypertension (idiopathic) with ulcer and inflammation of left lower extremity; I70.242 Atherosclerosis of native arteries of left leg with ulceration of calf; X58.XXXA Exposure to other specified factors, initial encounter | CPT/HCPCS: 99212 ==

== ENCOUNTER 2021-01-13 18:40 | Emergency (ER) | payer MEDICARE ==
[~2021-01-13 18:40] MED LIST changes: +SERT-413; -SERT50TA9
--- NOTE | 2021-01-13 18:53 | ED General ---
General Stated Complaint: AMS Source of Information: Patient, EMS Notes Reviewed, Family Exam Limitations: No Limitations History of Present Illness Date Seen by Provider: Jan 13, 2021 Time Seen by Provider: 18:45 Initial Comments 80-year-old female presents via EMS with family concerned that she was tired and difficult to wake up. EMS arrives with the patient awake alert with stated complaint she feels tired otherwise is without complaint. No recent illness, fever chills, cough or shortness of air. Denies chest pain or swelling of extremities. Denies abdominal pain, nausea vomiting or decreased appetite. Nurse did talk to patient's daughter who believes she may have gotten into her 's medication box on accident and may have taken: gabapentin, baclofen and Flomax Allergies and Home Medications Allergies Coded Allergies: No Known Drug Allergies (Unverified , 07/04/19) Home Medications Acetaminophen 325 Mg Capsule, 650 MG PO Q6H Prescribed by: OLIVE YEN on 07/04/19 1329 Cephalexin 500 Mg Tablet, 500 MG PO BID Prescribed by: YUMIKO MEDRANO on 07/11/20 1400 Patient Home Medication List Home Medication List Reviewed: Yes Review of Systems Review of Systems Constitutional: No fever, No malaise, No weakness; other (fatigue) EENTM: no symptoms reported Respiratory: no symptoms reported; No cough, No short of breath Cardiovascular: No chest pain, No edema, No palpitations, No syncope Gastrointestinal: No abdominal pain, No nausea, No vomiting Musculoskeletal: No back pain, No joint pain Skin: No change in color, No lesions, No rash Psychiatric/Neurological: Denies Anxiety, Denies Depressed, Denies Weakness Past Mkjogyb-Zeqpog-Xrsmoe Hx Past Med/Social Hx: Reviewed Nursing Past Med/Soc Hx Patient Social History 2nd Hand Smoke Exposure: No Recent Hopitalizations: No Immunizations Up To Date Tetanus Booster (TDap): Less than 5yrs Seasonal Allergies Seasonal Allergies: Yes Past Medical History Surgeries: Yes (Pacemaker/Defib, small bowel resection) Appendectomy, Bowel Surgery, Cardiac, Coronary Stent, Thyroidectomy Respiratory: Yes Asthma Cardiac: Yes Atrial Fibrillation, Heart Attack, High Cholesterol, Hypertension Neurological: No Genitourinary: No Gastrointestinal: Yes (Ulcerative Colitis) Colitis Musculoskeletal: Yes Arthritis, Chronic Back Pain Endocrine: Yes Hypothyroidsim HEENT: No Cancer: No Psychosocial: Yes Anxiety, Depression Integumentary: No Blood Disorders: No Physical Exam Vital Signs Vital Signs - First Documented 01/13/21 18:45 Temp 36.8 Pulse 60 Resp 18 B/P (MAP) 173/61 (98) Pulse Ox 100 O2 Delivery Room Air Capillary Refill : Height, Weight, BMI Height: '" Weight: lbs. oz. kg; 26.00 BMI Method: General Appearance: No Apparent Distress, WD/WN Eyes: Bilateral Eye Normal Inspection, Bilateral Eye PERRL, Bilateral Eye EOMI HEENT: PERRL/EOMI, Normal ENT Inspection Neck: Full Range of Motion, Normal Inspection, Non Tender, Supple Respiratory: Chest Non Tender, Lungs Clear, Normal Breath Sounds, No Accessory Muscle Use, No Respiratory Distress Cardiovascular: Regular Rate, Rhythm, No Edema, No JVD, Normal Peripheral Pulses Gastrointestinal: Normal Bowel Sounds, No Pulsatile Mass, Non Tender, Soft Back: Normal Inspection, No CVA Tenderness Extremity: Normal Capillary Refill, Normal Inspection, Non Tender Neurologic/Psychiatric: Alert, Oriented x3, No Motor/Sensory Deficits, Normal Mood/Affect, 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 Skin: Normal Color, Warm/Dry Focused Exam Lactate Level 01/13/21 19:24: Lactic Acid Level 0.85 Lactic Acid Level Laboratory Tests Test 01/13/21 19:24 Lactic Acid Level 0.85 MMOL/L (0.50-2.00) Procedures/Interventions Suture Size: 3-0 Progress/Results/Core Measures Suspected Sepsis SIRS Temperature: Pulse: Respiratory Rate: Laboratory Tests 01/13/21 19:00: White Blood Count 7.2 Blood Pressure / Mean: 01/13/21 19:24: Lactic Acid Level 0.85 Laboratory Tests 01/13/21 19:00: Creatinine 1.18, Platelet Count 210, Total Bilirubin 0.2 Results/Orders Lab Results Laboratory Tests Test 01/13/21 19:00 01/13/21 19:24 Range/Units White Blood Count 7.2 4.3-11.0 10^3/uL Red Blood Count 3.87 L 4.35-5.85 10^6/uL Hemoglobin 11.3 L 11.5-16.0 G/DL Hematocrit 35 35-52 % Mean Corpuscular Volume 89 80-99 FL Mean Corpuscular Hemoglobin 29 25-34 PG Mean Corpuscular Hemoglobin Concent 33 32-36 G/DL Red Cell Distribution Width 13.4 10.0-14.5 % Platelet Count 210 130-400 10^3/uL Mean Platelet Volume 10.4 7.4-10.4 FL Immature Granulocyte % (Auto) 0 % Neutrophils (%) (Auto) 57 42-75 % Lymphocytes (%) (Auto) 30 12-44 % Monocytes (%) (Auto) 10 0-12 % Eosinophils (%) (Auto) 3 0-10 % Basophils (%) (Auto) 0 0-10 % Neutrophils # (Auto) 4.1 1.8-7.8 X 10^3 Lymphocytes # (Auto) 2.1 1.0-4.0 X 10^3 Monocytes # (Auto) 0.7 0.0-1.0 X 10^3 Eosinophils # (Auto) 0.2 0.0-0.3 10^3/uL Basophils # (Auto) 0.0 0.0-0.1 10^3/uL Immature Granulocyte # (Auto) 0.0 0.0-0.1 10^3/uL Neutrophils % (Manual) 86 % Lymphocytes % (Manual) 8 % Monocytes % (Manual) 6 % Polychromasia SLIGHT Microcytosis SLIGHT Target Cells MARKED Elliptocytes SLIGHT Sodium Level 138 135-145 MMOL/L Potassium Level 4.2 3.6-5.0 MMOL/L Chloride Level 105 98-107 MMOL/L Carbon Dioxide Level 24 21-32 MMOL/L Anion Gap 9 5-14 MMOL/L Blood Urea Nitrogen 30 H 7-18 MG/DL Creatinine 1.18 0.60-1.30 MG/DL Estimat Glomerular Filtration Rate 44 BUN/Creatinine Ratio 25 Glucose Level 105 70-105 MG/DL Calcium Level 9.4 8.5-10.1 MG/DL Corrected Calcium 8.5-10.1 MG/DL Total Bilirubin 0.2 0.1-1.0 MG/DL Aspartate Amino Transf (AST/SGOT) 25 5-34 U/L Alanine Aminotransferase (ALT/SGPT) 16 0-55 U/L Alkaline Phosphatase 93 40-136 U/L Troponin I < 0.30 <0.30 NG/ML Total Protein 7.0 6.4-8.2 GM/DL Albumin 4.6 H 3.2-4.5 GM/DL Serum Alcohol < 10 <10 MG/DL Lactic Acid Level 0.85 0.50-2.00 MMOL/L My Orders Orders - [id number] Quoc DO Ed Iv/Invasive Line Start (01/13/21 18:53) Cbc With Automated Diff (01/13/21 18:53) Comprehensive Metabolic Panel (01/13/21 18:53) Lactic Acid Analyzer (01/13/21 18:53) Urinalysis (01/13/21 18:53) Troponin I Fs (01/13/21 18:53) Drug Screen Stat (Urine) (01/13/21 18:53) Ekg Tracing (01/13/21 18:53) Chest 1 View Ap/Pa Only (01/13/21 18:53) Alcohol (01/13/21 18:53) Manual Differential (01/13/21 19:00) Vital Signs/I&O 01/13/21 18:45 Temp 36.8 Pulse 60 Resp 18 B/P (MAP) 173/61 (98) Pulse Ox 100 O2 Delivery Room Air Capillary Refill : Progress Note : Progress Note Concluded with patient's daughter per information given from her mother's comfort station attendant that all of her dad's medications that he takes at night were gone this evening and her mother was asleep. Those medications include baclofen and gabapentin (which Ms. Mackey does not take). Normal vital signs and labs, patient no distress but obviously moderately lethargic. Able to answer questions and expresses no concerns, pain or distress. Neurologically intact. Given the likelihood of this accident with patient presentation, patient was allowed to go home with her daughter whom she lives with. If not acting normal tomorrow morning advised to return for further evaluation, however this was very likely what happened, accidental UN-intentional drug ingestion ECG Initial ECG Impression Date: Jan 13, 2021 Initial ECG Impression Time: 19:15 Initial ECG Rate: 60 Initial ECG Rhythm: Normal Sinus Initial ECG Intervals: Normal Initial ECG Impression: Normal Initial ECG Comparisson: No Previous ECG Available Diagnostic Imaging Diagonstic Imaging: Xray Comments COMPARISON: 07/11/2020. FINDINGS: The lungs are clear. There is no failure, effusion or pneumothorax. Pacemaker device is unremarkable. There is some flattening of the diaphragms and symmetrical air trapping as a chronic finding. IMPRESSION: Clear hyperexpanded lungs, otherwise negative. Dictated on workstation # [id number] Dict: 01/13/211909 Trans: 01/13/211911 LOCATED WITHIN [facility] [id number] Interpreted by: CLEVE ZAMARRIPA Electronically signed by: Departure Impression Primary Impression: Fatigue Qualified Codes: R53.83 - Other fatigue Additional Impression: Accidental medication error Qualified Codes: T50.901A - Poisoning by unspecified drugs, medicaments and biological substances, accidental (unintentional), initial encounter Disposition: 01 HOME, SELF-CARE Condition: Stable Departure-Patient Inst. Decision time for Depature: 19:50 Referrals: LUIS HOLDER DO (PCP) Primary Care Physician [facility]/[place] (Family) Primary Care Physician Patient Instructions: Accidental Overdose (DC) Add. Discharge Instructions: Work out a foolproof plan so as to not to accidentally take medications that are not yours. Make sure your medications are labeled and in separate containers or cabinets to prevent this from happening again in the future. SHOBHA KAUR DO Jan 13, 2021 18:53
[2021-01-13 19:10] LABS: BASOPHILS % (AUTO) 0 % (0-10); EOSINOPHILS % (AUTO) 3 % (0-10); HEMATOCRIT 35 % (35-52); HEMOGLOBIN 11.3 G/DL (11.5-16.0); LYMPHOCYTES # (AUTO) 2.1 X 10^3 (1.0-4.0); LYMPHOCYTES % (AUTO) 30 % (12-44); MEAN CORPUSCULAR HEMOGLOBIN 29 PG (25-34); MEAN CORPUSCULAR HGB CONC 33 G/DL (32-36); MEAN CORPUSCULAR VOLUME 89 FL (80-99); MEAN PLATELET VOLUME 10.4 FL (7.4-10.4); MONOCYTES # (AUTO) 0.7 X 10^3 (0.0-1.0); MONOCYTES % (AUTO) 10 % (0-12); NEUTROPHILS # (AUTO) 4.1 X 10^3 (1.8-7.8); NEUTROPHILS % (AUTO) 57 % (42-75); PLATELET COUNT 210 10^3/uL (130-400); WHITE BLOOD COUNT 7.2 10^3/uL (4.3-11.0)
[2021-01-13 19:11] LABS: EOSINOPHILS # (AUTO) 0.2 10^3/uL (0.0-0.3)
--- NOTE | 2021-01-13 19:12 | Diagnostic Imaging Report ---
INDICATION: Fatigue and mental status changes. COMPARISON: 07/11/2020. FINDINGS: The lungs are clear. There is no failure, effusion or pneumothorax. Pacemaker device is unremarkable. There is some flattening of the diaphragms and symmetrical air trapping as a chronic finding. IMPRESSION: Clear hyperexpanded lungs, otherwise negative. Dictated by: Dictated on workstation # [id number]
[2021-01-13 19:18] LABS: LYMPHOCYTES % (MANUAL) 8 %; MICROCYTOSIS SLIGHT; MONOCYTES % (MANUAL) 6 %; NEUTROPHILS % (MANUAL) 86 %; POLYCHROMASIA SLIGHT
[2021-01-13 19:19] LABS: ELLIPT/OVALOCYTES SLIGHT; TARGET CELLS MARKED
[2021-01-13 19:25] LABS: SODIUM 138 MMOL/L (135-145)
[2021-01-13 19:26] LABS: ALANINE AMINOTRANSFERASE 16 U/L (0-55); ALBUMIN 4.6 GM/DL (3.2-4.5); ALKALINE PHOSPHATASE 93 U/L (40-136); BILIRUBIN,TOTAL 0.2 MG/DL (0.1-1.0); BUN/CREATININE RATIO 25; CALCIUM 9.4 MG/DL (8.5-10.1); CARBON DIOXIDE 24 MMOL/L (21-32); CHLORIDE 105 MMOL/L (98-107); CREATININE SERUM 1.18 MG/DL (0.60-1.30); GFR ESTIMATED 44; GLUCOSE 105 MG/DL (70-105); POTASSIUM 4.2 MMOL/L (3.6-5.0)
[2021-01-13 20:04] VITALS: BP 153/62
== END 2021-01-13 20:04 | disposition home or self-care (01) ==
LOC: EDUNIT# 18:40 → ER FS 18:41
DX: R53.83 Other fatigue (principal); T42.6X1A Poisoning by other antiepileptic and sedative-hypnotic drugs, accidental (unintentional), initial encounter; I25.2 Old myocardial infarction; I10 Essential (primary) hypertension; J45.909 Unspecified asthma, uncomplicated
CPT/HCPCS: 71045; 80053; 83605; 84484; 85007; 93005; 99284; G0480; 80320